=== PATIENT | male | born 1975 | race Caucasian/White ===

== ENCOUNTER 2021-04-18 17:36 | Emergency (ER) | payer BC ==
[2021-04-18] MEDS ORDERED: Bacitracin 1 PK ONE (18:22)
[2021-04-18] MEDS ORDERED: Boostrix 0.5 ML (Tdap) VIAL ONE (18:22)
== END 2021-04-18 18:32 | disposition home or self-care (01) ==
LOC: MADERS 17:36
DX: T22.20XA Burn of second degree of shoulder and upper limb, except wrist and hand, unspecified site, initial encounter (principal); Z23 Encounter for immunization; I10 Essential (primary) hypertension; K21.9 Gastro-esophageal reflux disease without esophagitis; F17.200 Nicotine dependence, unspecified, uncomplicated; Z79.899 Other long term (current) drug therapy; X08.8XXA Exposure to other specified smoke, fire and flames, initial encounter
CPT/HCPCS: 16020; 90471; 90715